=== PATIENT | female | born 1940 | race Caucasian/White ===

== ENCOUNTER → 2022-10-14 | Outpatient (CLI) | payer SELFPAY ==
--- NOTE | 2022-10-14 10:26 | EKG12_ITS ---
Test Reason : PRE-OP Blood Pressure : / mmHG Vent. Rate : 075 BPM Atrial Rate : 075 BPM P-R Int : 174 ms QRS Dur : 080 ms QT Int : 400 ms P-R-T Axes : 050 -16 044 degrees QTc Int : 446 ms Sinus rhythm with occasional Premature ventricular complexes Otherwise normal ECG Confirmed by LORENA SIMPSON, PRIETO ([id number]), editor newspaper TORIBIO LORENZ ([id number]) on 10/15/2022 10:53:07 AM Referred By: Peña Hughes Confirmed By:PRIETO CARRILLO MD
== END | disposition home or self-care (01) ==
PROVIDERS: PCP Family Medicine; Referring Provider Surgery; Visit Provider Surgery
DX: I49.3 Ventricular premature depolarization (principal)
CPT/HCPCS: 93005

== ENCOUNTER 2023-10-06 10:16 | Day surgery (SDC) | payer SELFPAY ==
[2023-10-06] VITALS (11 sets, daily range): BP systolic 144–173; BP diastolic 60–86; PULSE 45–75; RESP 16–18; TEMP 36.1–36.7; O2SAT 87–100; BMI 31.2
[2023-10-06] MEDS: Lactated Ringers 1,000 ML 15 ML IV ×2 (11:10→15:39)
[2023-10-06 11:27] LABS: Hematocrit 39.2 % (37-47); Hemoglobin 13.3 g/dL (12.0-15.0); Mean Corp Hgb Conc 33.9 g/dL (32-36); Mean Corpuscular Hgb 32.8 pg (27.0-32.0); Mean Corpuscular Volume 96.6 fL (81-99); Mean Platelet Vol. 9.7 fl (6.2-12.0); Platelet Count 296 K/mm3 (150-450); RBC Distribution Width CV 13.8 % (11.6-14.6); RBC Distribution Width SD 49.4 fl (35.1-43.9); Red Blood Count 4.06 M/mm3 (4.2-5.4); White Blood Count 9.6 K/mm3 (4.4-11.0)
[2023-10-06 11:50] LABS: Anion Gap 8 (5-15); BUN 19 mg/dL (7-18); BUN/Creat Ratio 26.8 RATIO (10-20); Calcium,Total 8.5 mg/dL (8.5-10.1); Chloride 112 mmol/L (98-107); Creatinine, Serum 0.71 mg/dL (0.55-1.02); EST Glomerular Filtration Rate 84 mL/min (>60); Est Glom Filt Rate - Afr Amer 102 mL/min (>60); Estimated Creatinine Clearance 35.49 ml/min; Glucose 108 mg/dL (74-106); Potassium 4.1 mmol/L (3.5-5.1); Sodium Level 143 mmol/L (136-145)
--- NOTE | 2023-10-06 11:51 | HP.PCM_ITS ---
History and Physical Date of Admission: 10/06/23 Is patient in pain?: No Allergies prochlorperazine [From Compazine] Allergy (Verified 09/06/23 09:14) Swellingprochlorperazine edisylate [From Compazine] Allergy (Verified 09/06/23 09:14) Swellingprochlorperazine maleate [From Compazine] Allergy (Verified 09/06/23 09:14) Swelling Medications amlodipine 5 mg tablet 5 mg PO DAILY 10/14/22 [History Confirmed 09/06/23] multivitamin with minerals 1 cap PO DAILY 09/06/23 [History Confirmed 09/06/23] PFSH Medical History Hypertension Irregular heartbeat Surgical History Hx of cholecystectomy Social History Smoking Status: Never smoker alcohol intake: never substance use type: does not use HPI HPI Surgical H&P: Yes HPI: Patient is an 82 y/o F I am seeing for an update history and physical for an elective ventral incisional hernia repair with mesh. Patient denies any recent hospitalizations or illnesses. She was evaluated by her PCP for high blood pressure. She is currently on amlodipine, which she does not take on a regular daily basis. She had a Holter monitor which demonstrated PVCs. Patient notes she is anxious for this surgery and is having trouble sleeping. She notes she has tried Tylenol PM and Melatonin, which has not helped. Patient denies any pulmonary issues. She denies any complications or side effects from anesthesia. She denies any concerns with the hernia. Patient's previous history per Dr. Hughes: 82-year-old female. I previously saw her in the office on October 14, 2022 in consultation for a ventral incisional hernia superior to the umbilicus. I had offered the patient a direct approach to this hernia hopefully being able to utilize a Ventralex mesh but holding open the opportunity to convert to a laparoscopic approach if indicated. That then would be benefited by a transabdominal plane block. The patient however was significantly hypertensive at that time and had an irre gular heart rate. She was to follow through with maximization of her medical management per primary care. The patient admits that sometimes based upon blood pressures that she takes at home that she does not take her blood pressure medicine. She will occasionally notice irregularity of her heart rate. She presents today however having had what appears to be a Holter monitor which demonstrated PVCs. It was felt that if these were not bothersome to the patient that a cardiology appointment would not be required. TSH level was felt to be normal. As of October 14, [address] [facility] she had a ECG which was felt to be normal except for occasional PVCs. The patient denies chest pain. She denies shortness of breath. My previous notes reflect the following 81-year-old female who is being referred by Dr. Luigi Chaudhari for surgical consultation regarding an umbilical hernia.? Written copy of my surgical consult recommendations will return to him.? It is of note that on September 21, 2022 at [facility] in [facility] she had a CT scan of the abdomen pelvis.? The gallbladder is noted to be surgically absent.? Fatty changes of the liver present.? Colonic diverticulosis with moderate stool retention noted.? A 5.9 cm umbilical hernia with fat present with the orifice being 2.6 cm in diameter.? I have personally reviewed these images.? The hernia actually does not appear to be an umbilical hernia but rather a ventral hernia that is superior to the umbilicus.? There is a significant amount of fibrofatty tissue that appears incarcerated. The patient reminds me that I assisted her in 1995 with a laparoscopic cholecystectomy She states however that only several months ago did she start noticing a bulge at the superior aspect of her umbilicus.? It is progressively enlarged. She also states that she has a blood pressure monitor at home.? She only takes her blood pressure medicine when she thinks she has an elevated blood pressure.? She has not been taking it on a daily basis.? She states that she notices that her machine tells that she has an irregular heart rate.? She does not think that her primary care physician Dr. Luigi Chaudhari is aware of this.? The patient admits that she does not see him very often ROS General General: Yes weight change and fatigue; No appetite, colon cancer, breast cancer or weakness HEENT HEENT: No difficulty swallowing, eye injury, eye surgery, swollen glands or hoarseness Endo Endocrine: No thyroid disease, diabetes mellitus, thyroid cancer, Hair loss, heat intolerance or cold intolerance Skin Skin: No rash or changing moles Breast Breast: No left breast lump, right breast lump, nipple discharge, breast pain, abnormal mammogram, abnormal US or breast enlargement [facility] [place] Musculoskeletal: Yes arthritis; No back problems, rheumatoid arthritis, gout or joint pain Cardio Cardiovascular: Yes high blood pressure; No murmur, pacemaker, heart disease, atrial fibrillation, heart attack, heart stent, palpitations, shortness of breat with exertion or chest pain Psych Psychiatric: Yes anxiety; No depression or hearing voices Resp Respiratory: No shortness of breath, No sleep apnea, No cough, No COPD, No asthma, No emphysema and No wheezing Gastro Gastrointestinal: No abdominal pain, No nausea or vomiting, No diarrhea, Yes constipation, No blood in stool, Yes acid reflux, No hemorrhoids, Yes ulcers, No gallbladder problem and No black,tarry stools Quintin Hematologic: Yes blood disorders, Yes bleeding, Yes anemia and Yes blood clots Neuro Neurologic: No system reviewed and no additional complaints, except as documented, No as per HPI, No abnormal gait, No abnormal hearing, No abnormal movements, No abnormal speech, No behavioral changes, No burning sensations, No confusion, No convulsions, No disequilibrium, No dizziness, No localized weakness, No frequent falls, No headache(s), No lack of coordination, No loss of vision, No memory loss, No numbness, No other visual disturbances, No radicular pain, No restless legs, No sensory deficit, No syncope, No tingling, No tremor(s), No weakness and No other Exam Const General: cooperative, healthy appearing, comfortable and no acute distress [facility] Head: normal to inspection Eyes General: appearance normal, both eyes and all related structures Neck Neck: normal visual inspection Neck mass: No Chest Chest palpation & inspection: normal inspection of the chest Resp Effort & Inspection: normal respiratory effort Auscultation: clear to auscultation bilaterally Cardio Rate: regular rate Rhythm: regular rhythm Other: Currently regular rhythm GI Inspection: normal to inspection Palpation: no hepatosplenomegaly Auscultation: normal bowel sounds Other: Superior edge of the umbilicus there is a 5 cm diameter fibrofatty mass. Partially reducible, slightly tender. Well-healed infraumbilical incision noted. [facility] [place] Cervical Spine: normal cervical lordosis Skin General: no rashes or lesions noted Neuro General: no focal motor deficits and CN's II-XI intact bilaterally Extrem General: normal to inspection Psych Appearance: grossly normal Affect: normal affect Assessment and Plan Assessment and Plan (1) Incisional hernia of anterior abdominal wall without obstruction or gangrene: Status: Acute Plan: Dr. Hughes will plan to perform an open ventral incisional hernia repair with mesh possible conversion to laparoscopic approach. Procedure details, risks and benefits have been explained. Patient has had the opportunity to ask and have questions answered. Patient verbally understands and agrees with the plan. I have recommended the patient take her blood pressure every day and more co nsistent. Patient verbally understands and agrees. I have examined the patient and the H&P has been reviewed. There are no clinical changes since date of exam. Peña Hughes M.D., F.A.C.S.
--- NOTE | 2023-10-06 11:52 | DCINST_ITS ---
Discharge Instructions Procedure General Surgery Diet Discharge Diet: Light diet - advance as tolerated (if you have questions about your diet instructions, please talk to you doctor.) Activity Discharge Activity: May Not Drive (for 3-5 days or while taking narcotic pain medicine.) May shower in (days): 1 Lifting Restrictions: 10 pounds Dressing / Incision Call your doctor if your incision/area has: Continuous Slow Oozing, Sudden Increased Bleeding, Increased Pain/ Swelling, Increased Redness and Foul Smelling Discharge Call your doctor if you observe: Fever of 101 or Higher Suture Line Care: Avoid Pulling/Pushing and Avoid Pinching/Bending Additional Dressing/Incision Instructions:: Change or remove dressing in 4 days. Leave steri-strips in place for 1 week. Follow Up Care Please Follow Up With: Peña Hughes MD When: Call [phone] to make an appointment to be seen in about 10 days. Test Results: Test results from this visit will be discussed in further detail at your follow- up appointment, if applicable. Discharge Plan Admission Attending Provider: Peña Hughes Primary Care Provider: Luigi Chaudhari Discharge Orders/Prescriptions Prescriptions: No Action amlodipine 5 mg tablet 5 mg PO DAILY multivitamin with minerals Capsule 1 cap PO DAILY Referrals / Follow Up: Luigi Chaudhari MD [Primary Care Provider] - Disposition Disposition (needs filled in before D/C Order can be placed): Home, Self Care
[2023-10-06] MEDS: Cefazolin 2 GM in 0.9% Normal Saline (100mL Bag) 100 ML IV (12:25)
--- NOTE | 2023-10-06 12:30 | HERN_PTH ---
PATHOLOGY RESULTS PATIENT: ANTHONY CHAPMAN [place] [facility] U[place][id number] AGE/SX: 82/F ROOM: RE10/06/[address]: Dr. Peña Hughes MD : [id number] BED: DIS: 10/06/2023 SPEC #: [id number] RECD: 10/07/23 07:08 STATUS: ASH CARMEN #: [id number] JANINE: 10/06/23 12:[address]: Peña Hughes DEPT: SURGICAL PATHOLOGY RECD BY: Filomena Urrutia ENTERED: 10/07/23 07:08 SP TYPE: Hernia OTHR DR: Dr. Luigi Chaudhari MD Tissues: HERNIA Omentum, NOS Procedures: Surgery Specimen Level II Surgery Specimen Level IV HEADER OPERATION: Incarcerated ventral/incisional herniorrhaphy with mesh PRE-OP DIAGNOSIS: Incisional hernia of anterior abdominal wall TISSUE SUBMITTED: A - Hernia sac and contents, B - Incarcerated omentum MICROSCOPIC DIAGNOSIS A. Hernia sac and contents: A mesothelial-lined piece of fibroadipose and fibroconnective tissue, consistent with hernia sac with chronic inflammation. B. Incarcerated omentum, excision: A piece of mature adipose tissue, clinically incarcerated omentum. PARKER:ginny 10/08/2023 MICROSCOPIC DESCRIPTION Slides are reviewed. GROSS DESCRIPTION A - Received in fixative is one container labeled with the patient's name and designated hernia sac and contents. The specimen consists of a membranous sac with attached adipose tissue measuring 2.5 cm in length and up to 4.0 cm in diameter. No mass lesion is identified. Detonator Assembler sections are submitted in one cassette. B - Received in fixative is one container labeled with the patient's name and designated incarcerated omentum. The specimen consists of two pieces of adipose tissue consistent with omentum measuring in aggregate 13.0 x 8.0 x 2.0 cm. No mass lesion is identified. Detonator Assembler sections are submitted in one cassette. / PARKER:ginny 10/07/2023 TC: 5 CPT: 31268, 67058
[2023-10-06] MEDS: Bupivacaine Mpf 0.5% 30 ML VIAL (13:18)
--- NOTE | 2023-10-06 13:23 | PCM.OPRPT ---
Report of Operation Date of Procedure: 10/06/23 Pre-Operative Diagnosis: Incarcerated ventral incisional hernia at the umbilicus Post-Operative Diagnosis: Incarcerated ventral incisional hernia 3 cm in diameter at the umbilicus Surgery/Procedure Performed:: Incarcerated ventral incisional herniorrhaphy with [address] mesh Reference [id number], lot number [id number], expiry date 02/28/2025 Description of Surgical Findings:: Timeout informed consent was obtained. 82-year-old female was taken to the operating placed upon the table underwent general endotracheal intubation anesthesia the abdomen was sterilely prepped and draped Ancef 2 g were given intravenously clean procedure. A supraumbilical curvilinear incision was created sharp blunt dissection performed hernia sac identified and was opened there was significant amount of incarcerated omentum. Despite attempts to reduce omentum this was not possible so then I transected a portion of the omentum by placing Luanne clamps amputating the excess indurated omentum and secured the bases with 0 Vicryl ligature. Then created a space in the retrorectus space elevating the peritoneum. I then closed the peritoneal defect with a running 3-0 Vicryl. An [address] mesh was placed in the retrorectus space. It was secured in position with the tails with interrupted 0 Nurolon and then the fascia was approximated transversely with interrupted 0 Nurolon incorporating the anterior portion of the mesh. Good closure and positioning was achieved. The BOBO fascial area and skin was anesthetized with 30 cc of 0.5% Marcaine. Subcutaneous tissues were approximated up to 3-0 Vicryl. Excess skin was trimmed free the skin was then discarded. Skin edges were approximated with interrupted 4 Monocryl subdermal stitches. Steri-Strips Telfa cotton balls OpSite dressings applied. Sponge and instrument and needle counts were reported the surgeon to be correct. Specimen hernia sac and incarcerated omentum. Drains none. Blood loss minimal. The patient was taken to the recovery room in satisfied condition without apparent complication Peña Hughes M.D., F.A.C.S. Surgeon: Peña Hughes Type of Anesthesia: General and Local Anesthesiologist: Genet Paula
[2023-10-06 15:40] LABS: Troponin-I HS 7 pg/mL (3.0-54.0)
== END 2023-10-06 18:33 | disposition home or self-care (01) ==
LOC: SDC 10:18 → AC 10:21
PROVIDERS: Anesthesiology; PCP Family Medicine; Referring Provider Surgery; Visit Provider Surgery
PROC: 0WQF4ZZ Repair Abdominal Wall, Percutaneous Endoscopic Approach (ICD-10-PCS; CPT 49594; principal; 2023-10-06 12:15)
DX: K43.0 Incisional hernia with obstruction, without gangrene (principal); K76.0 Fatty (change of) liver, not elsewhere classified; I10 Essential (primary) hypertension; Z90.49 Acquired absence of other specified parts of digestive tract; K57.30 Diverticulosis of large intestine without perforation or abscess without bleeding; K42.9 Umbilical hernia without obstruction or gangrene
CPT/HCPCS: 49594; 00832; 80048; 84484; 85027; 88302; 88305; 93005; J7120; C1781; J2405; J3490

== ENCOUNTER 2024-01-07 12:50 | Emergency (ER) | payer OTHER, SELFPAY ==
[2024-01-07 12:50] VITALS: BP 174/104; PULSE 92; RESP 18; O2SAT 97
[2024-01-07 12:52] VITALS: BP 208/61; PULSE 58; RESP 18; TEMP 36.3; O2SAT 97
--- NOTE | 2024-01-07 13:07 | EX.ED.DYSGE1 ---
HPI <KOJO Fontaine - Last Filed: 01/07/24 14:48> History of Present Illness Chief Complaint: Palpitations Narrative Narrative: 83-year-old female with past medical history of hypertension was sent in by her primary care office for palpitations. Patient has had palpitations with sensation of heart pounding at night starting about a year ago. She reports doing a Holter monitor a year ago which showed PVCs. The palpitations have become more frequent at night. She has no associated chest pain, shortness of breath, nausea or vomiting, or abdominal pain. She does not have symptoms during the day. The only medication she takes is amlodipine 5 mg in the morning. She does not smoke or drink alcohol. She states her heart rate with her home BP cuff shows 40-80 bpm. PFSH <KOJO Fontaine - Last Filed: 01/07/24 14:48> [facility] Medical History Anxiety Arthritis High cholesterol History of diverticulitis Hypertension Irregular heartbeat Non-smoker Post-menopausal Rash Wears glasses Home Medications amlodipine 5 mg tablet 5 mg PO DAILY 10/14/22 [History Last Taken 10/06/23] multivitamin with minerals 1 cap PO DAILY 09/06/23 [History Last Taken Unknown] nystatin 100,000 unit/gram topical powder 1 applic topical BID #15 grams 10/06/23 [Rx Last Taken Unknown] amoxicillin 875 mg-potassium clavulanate 125 mg tablet 1 tab PO Q12H #14 tabs 10/19/23 [Rx Last Taken Unknown] dextromethorphan-guaifenesin 10 mg-100 mg/5 mL oral liquid 10 ml PO Q4H PRN cough #500 mL 10/19/23 [Rx Last Taken Unknown] methylprednisolone 4 mg tablets in a dose pack See Rx Instructions PO PER PKG DIR #21 tabs 10/19/23 [Rx Last Taken Unknown] metoprolol tartrate 25 mg tablet 25 mg PO BID 30 days #60 tabs 01/07/24 [Rx Last Taken Unknown] Allergy/AdvReac Type Severity Reaction Status Date / Time prochlorperazine Allergy Swelling Verified 01/07/24 12:51 [From Compazine] prochlorperazine edisylate Allergy Swelling Verified 01/07/24 12:51 [From Compazine] prochlorperazine maleate Allergy Swelling Verified 01/07/24 12:51 [From Compazine] Surgical History History of tonsillectomy and adenoidectomy (~195) History of umbilical hernia repair Hx of cholecystectomy (~1992) Social History Smoking Status: Never smoker alcohol intake: never substance use type: does not use ROS <KOJO Fontaine - Last Filed: 01/07/24 14:48> ROS ED ROS Narrative Constitutional: Negative for fever, chills, malaise. CVS: Positive for palpitations. Negative for chest pain, syncope. Respiratory: Negative for shortness of breath, cough, orthopnea. GI: Negative for abdominal pain, nausea, vomiting. EXAM <KOJO Fontaine - Last Filed: 01/07/24 14:48> Physical Exam Narrative Exam Narrative: CONST: Patient sitting in no acute distress. EYES: Normal inspection. NECK: Normal inspection. RESP: No respiratory distress, CTAB. CVS: Regular rate and rhythm, no murmur, no gallop. SKIN: Color normal, no rash, warm, dry, intact. EXTREMITIES: Normal appearance, no pedal edema. NEURO: Oriented x4. PSYCH: Normal affect. Const Vital Signs: 01/07/24 12:52 01/07/24 12:50 01/07/24 13:11 Temperature 97.3 F L Temperature Source Temporal Pulse Rate 58 L 92 Respiratory Rate 18 18 Respiratory Effort Normal Blood Pressure 208/61 H 174/104 H Blood Pressure Mean 110 127 Pulse Ox 97 97 Oxygen Delivery Method Room Air Room Air 01/07/24 13:26 01/07/24 14:53 Temperature 97 F L Temperature Source Pulse Rate 81 73 Respiratory Rate 18 15 Respiratory Effort Blood Pressure 197/72 H 140/87 H Blood Pressure Mean 113 104 Pulse Ox 96 95 Oxygen Delivery Method Room Air <Dr. Ganga Todd DO - Last Filed: 01/07/24 16:42> Physical Exam Const Vital Signs: 01/07/24 12:52 01/07/24 12:50 01/07/24 13:11 Temperature 97.3 F L Temperature Source Temporal Pulse Rate 58 L 92 Respiratory Rate 18 18 Respiratory Effort Normal Blood Pressure 208/61 H 174/104 H Blood Pressure Mean 110 127 Pulse Ox 97 97 Oxygen Delivery Method Room Air Room Air 01/07/24 13:26 01/07/24 14:53 Temperature 97 F L Temperature Source Pulse Rate 81 73 Respiratory Rate 18 15 Respiratory Effort Blood Pressure 197/72 H 140/87 H Blood Pressure Mean 113 104 Pulse Ox 96 95 Oxygen Delivery Method Room Air MDM <KOJO Fontaine - Last Filed: 01/07/24 14:48> [facility] Narrative Medical decision making narrative: History gathered from: Patient and spouse Differential: PVCs, SVT, A-fib, electrolyte abnormality, ACS Patient has had palpitations at night over the last year increasing in frequency. She has no other symptoms. She is awake and alert, BP 174/104, heart rate sinus rhythm in the 90s and otherwise stable vital signs. I do note frequent PVCs on the monitor. The rest of her exam is benign. CBC and BMP unremarkable. Troponin is 7. CXR shows no acute process. I suspect she is having symptomatic PVCs at night. She does report some low heart rates at home however here is pretty consistently 80 to 90 bpm. I discussed the case with Dr. Pederson and cardiology who recommended adding metoprolol to tartrate 25 mg twice daily for better blood pressure and palpitation control. Patient was advised to follow-up with the cardiology office and was discharged in stable condition. Lab Data Attestation: I reviewed the patient's lab results. Labs: Laboratory Results - last 24 hr 01/07/24 13:13 WBC 9.9 RBC 4.53 Hgb 14.1 Hct 42.6 MCV 94.0 MCH 31.1 MCHC 33.1 RDW Std Deviation 48.3 H RDW Coeff of [place] 14.0 Plt Count 300 MPV 10.2 Immature Gran % (Auto) 0.200 Neut % (Auto) 52.8 Lymph % (Auto) 32.5 [place] % (Auto) 10.0 Eos % (Auto) 3.4 Baso % (Auto) 1.1 H Absolute Neuts (auto) 5.2 Absolute Lymphs (auto) 3.21 Nucleated RBC % 0 Sodium 140 Potassium 4.2 Chloride 108 H Carbon Dioxide 27.0 Anion Gap 5 BUN 21 H Creatinine 1.00 Estim Creat Clear Calc 44.73 Est GFR (MDRD) Af Amer 68 Est GFR (MDRD) Non-Af 57 L BUN/Creatinine Ratio 21.0 H Glucose 214 H Calcium 8.9 Troponin I High Sens 7 Radiography Diagnostic Testing: Clinical Impression(s) from Imaging Studies Chest X-Ray 01/07/24 13:19 IMPRESSION: No acute abnormality seen. Electronically Signed: Sampson Askew MD at 13:33 EDT , ED attending interpretation of 1-view chest x-ray shows normal heart size, no acute infiltrate, edema, or effusion. EKG Initial EKG: Attestation: I personally reviewed and interpreted this EKG as follows: Comments: Normal sinus rhythm at 90 bpm with frequent PVCs <Dr. Ganga Todd, DO - Last Filed: 01/07/24 16:42> [facility] Narrative Medical decision making narrative: History gathered from: Patient and spouse Differential: PVCs, SVT, A-fib, electrolyte abnormality, ACS Patient has had palpitations at night over the last year increasing in frequency. She has no other symptoms. She is awake and alert, BP 174/104, heart rate sinus rhythm in the 90s and otherwise stable vital signs. I do note frequent PVCs on the monitor. The rest of her exam is benign. CBC and BMP unremarkable. Troponin is 7. CXR shows no acute process. I suspect she is having symptomatic PVCs at night. She does report some low heart rates at home however here is pretty consistently 80 to 90 bpm. I discussed the case with Dr. Pederson and cardiology who recommended adding metoprolol to tartrate 25 mg twice daily for better blood pressure and palpitation control. Patient was advised to follow-up with the cardiology office and was discharged in stable condition. ED attending note: I evaluated the patient in conjunction with the DORETHA. I agree with his/her statements and above findings. I have personally performed a face to face assessment of the patient and have reviewed the D[facility]ET[facility] Note. I performed a substantive portion of the visit including all aspects of the following. I personally saw the patient performed chart review, physical exam, reviewed labs, imaging (if obtained), and formulated a treatment and management plan. This note was generated with [employer] dictation software. It may contain incorrect words, spelling, and punctuation that were not noted in review of the chart prior to signing. Lab Data Labs: Laboratory Results - last 24 hr 01/07/24 13:13 WBC 9.9 RBC 4.53 Hgb 14.1 Hct 42.6 MCV 94.0 MCH 31.1 MCHC 33.1 RDW Std Deviation 48.3 H RDW Coeff of [place] 14.0 Plt Count 300 MPV 10.2 Immature Gran % (Auto) 0.200 Neut % (Auto) 52.8 Lymph % (Auto) 32.5 [place] % (Auto) 10.0 Eos % (Auto) 3.4 Baso % (Auto) 1.1 H Absolute Neuts (auto) 5.2 Absolute Lymphs (auto) 3.21 Nucleated RBC % 0 Sodium 140 Potassium 4.2 Chloride 108 H Carbon Dioxide 27.0 Anion Gap 5 BUN 21 H Creatinine 1.00 Estim Creat Clear Calc 44.73 Est GFR (MDRD) Af Amer 68 Est GFR (MDRD) Non-Af 57 L BUN/Creatinine Ratio 21.0 H Glucose 214 H Calcium 8.9 Troponin I High Sens 7 Radiography Diagnostic Testing: Clinical Impression(s) from Imaging Studies Chest X-Ray 01/07/24 13:19 IMPRESSION: No acute abnormality seen. Electronically Signed: Sampson Askew MD at 13:33 EDT Reading Location ID and State: [address] [place] [address] , Service support , Discharge Plan Triage Chief Complaint: Palpitations ED Midlevel Provider: Judy Oakley ED Provider: Ganga Todd Dx/Rx/DC Orders Clinical Impression: Palpitations, Frequent PVCs, Hypertension Instructions: ED Palpitations Prescriptions: New metoprolol tartrate 25 mg tablet 25 mg PO BID 30 Days Qty: 60 0RF No Action amlodipine 5 mg tablet 5 mg PO DAILY multivitamin with minerals Capsule 1 cap PO DAILY dextromethorphan-guaifenesin 10-100 mg/5 mL liquid 10 ml PO Q4H PRN (Reason: cough) Qty: 500 0RF amoxicillin-pot clavulanate 875-125 mg tablet 1 tab PO Q12H Qty: 14 0RF methylprednisolone 4 mg tablets,dose pack See Rx Instructions PO PER PKG DIR Qty: 21 0RF Rx Instructions: PO PER PKG DIR nystatin 100,000 unit/gram powder 1 applic topical BID Qty: 15 0RF Rx Instructions: Apply to affected area twice daily for 1 week Primary Care Provider: Luigi Chaudhari Referrals: Harini Pederson MD [Med Staff - Active Staff] - uLigi Chaudhari MD [Primary Care Provider] - Activity Restrictions/Additional Instructions: I prescribed a new medication called metoprolol to treat your blood pressure and palpitations. Please follow-up with the cardiology office. Disposition Disposition: Home, Self Care Discharge Date/Time: 01/07/24 15:04
[2024-01-07 13:14] VITALS: BMI 29.7
--- NOTE | 2024-01-07 13:19 | RAD_ITS ---
STUDY: X-RAY CHEST REASON FOR EXAM: Female, 83 years old. Palpitations TECHNIQUE: Single AP portable view of the chest. COMPARISON: Comparison is made with prior study dated October 19, 2023. FINDINGS: EKG electrodes are seen. The lungs are clear and expanded. There is no demonstrated pleural abnormality. There is mild cardiac enlargement. Normal mediastinum and justus. Normal visualized pulmonary arteries. There is atherosclerotic calcification of the aortic arch with tortuosity. There are diffuse degenerative changes of the visualized thoracic spine. Normal visualized ribs, clavicles, and shoulders. There is no demonstrated abnormality of the visualized soft tissue structures of the upper abdomen. RAD/Chest 1 View (Portable) IMPRESSION: No acute abnormality seen. Electronically Signed: Sampson Askew MD at 13:33 EDT ,
[2024-01-07 13:26] VITALS: BP 197/72; PULSE 81; RESP 18; O2SAT 96
[2024-01-07 13:36] LABS: Absolute Lymphocyte Count 3.21 X10^3/uL (0.83-4.51); Absolute Neutrophil Count 5.2 X10^3/uL (2.0-7.7); Basophil# 0.11 X10^3/uL; Basophil% 1.1 % (0-1); Eosinophil# 0.34 X10^3/uL; Eosinophils% 3.4 % (0-5); Hematocrit 42.6 % (37-47); Hemoglobin 14.1 g/dL (12.0-15.0); Lymphocyte # 3.21 X10^3/ul (0.83-4.51); Lymphocyte % 32.5 % (19-41); Mean Corp Hgb Conc 33.1 g/dL (32-36); Mean Corpuscular Hgb 31.1 pg (27.0-32.0); Mean Platelet Vol. 10.2 fl (6.2-12.0); Monocyte# 0.99 X10^3/uL; NRBC Flagged by Analyzer 0 % (0-5); Neutrophil # 5.22 X10^3/uL (2.7-7.7); Neutrophil % 52.8 % (47-70); Platelet Count 300 K/mm3 (150-450); RBC Distribution Width SD 48.3 fl (35.1-43.9); Red Blood Count 4.53 M/mm3 (4.2-5.4); White Blood Count 9.9 K/mm3 (4.4-11.0)
[2024-01-07 13:53] LABS: Anion Gap 5 (5-15); BUN 21 mg/dL (7-18); Calcium,Total 8.9 mg/dL (8.5-10.1); Chloride 108 mmol/L (98-107); EST Glomerular Filtration Rate 57 mL/min (>60); Est Glom Filt Rate - Afr Amer 68 mL/min (>60); Estimated Creatinine Clearance 44.73 ml/min; Glucose 214 mg/dL (74-106); Potassium 4.2 mmol/L (3.5-5.1); Sodium Level 140 mmol/L (136-145); Troponin-I HS 7 pg/mL (3.0-54.0)
[2024-01-07 14:53] VITALS: BP 140/87; PULSE 73; RESP 15; TEMP 36.1; O2SAT 95
[2024-01-07] MEDS: Metoprolol Tartrate 25 MG Tablet PO (14:54)
== END 2024-01-07 15:04 | disposition home or self-care (01) ==
PROVIDERS: Physician Assistant; Emergency Provider Emergency Medicine; PCP Family Medicine; Visit Provider Emergency Medicine
DX: R00.2 Palpitations (principal); I10 Essential (primary) hypertension; I49.3 Ventricular premature depolarization; Z79.899 Other long term (current) drug therapy; E78.00 Pure hypercholesterolemia, unspecified; Z90.49 Acquired absence of other specified parts of digestive tract
CPT/HCPCS: 71045; 80048; 84484; 85025; 93005; 99285

== ENCOUNTER → 2024-04-10 | Outpatient (CLI) | payer SELFPAY ==
--- NOTE | 2024-04-10 08:24 | ECHOD_ITS ---
Reason For Study: Arrhythmia Procedure This was a 2D Doppler, Color Flow transthoracic echocardiogram. Exam performed in department. Left Ventricle Normal LV size. Left ventricular systolic function is normal. Stage 1 diastolic dysfunction. The left ventricular ejection fraction is 60 %. No regional wall motion abnormalities noted. Right Ventricle Normal RV size. Normal systolic function. Atria Normal left atrium. Normal right atrium. Mitral Valve Normal mitral valve. Tricuspid Valve Normal tricuspid valve. Aortic Valve Trisinus/trileaflet aortic valve. Mild focal aortic valve calcification. Mild (1+) aortic valve insufficiency. Pulmonic Valve Normal pulmonic valve. Great Vessels Normal aortic root. The pulmonary artery is normal size. Normal inferior vena cava. Pericardium/Pleural No pericardial effusion. MMode/2D Measurements & Calculations LVIDd: 4.5 cm IVSd: 0.99 cm LVOT diam: 1.9 cm LVIDs: 2.5 cm LVPWd: 1.0 cm LVOT area: 2.8 cm2 RVDd: 3.2 cm FS: 43.4 % Ao root diam: 3.2 cm LAV(MOD-bp): 58.0 ml LVAd ap4: 26.9 cm2 LAV(MOD-bp) Indexed: 31.9 ml/m2 LVLd ap4: 7.9 cm LAV(MOD-sp2): 64.6 ml EDV(MOD-sp4): 75.9 ml LAV(MOD-sp4): 48.1 ml EDV(sp4-el): 78.1 ml LVAs ap4: 15.9 cm2 LVLs ap4: 6.7 cm ESV(MOD-sp4): 32.1 ml ESV(sp4-el): 31.8 ml EF(MOD-sp4): 57.8 % EF(sp4-el): 59.2 % LVAd ap2: 25.6 cm2 SV(MOD-sp4): 43.8 ml SV(MOD-sp2): 42.7 ml LVLd ap2: 7.7 cm EDV(MOD-sp2): 72.7 ml EDV(sp2-el): 72.2 ml LVAs ap2: 15.7 cm2 LVLs ap2: 7.3 cm ESV(MOD-sp2): 30.0 ml ESV(sp2-el): 28.7 ml EF(MOD-sp2): 58.7 % SV(sp4-el): 46.3 ml LA dimension(2D): 3.4 cm LA A4 area: 18.5 cm2 RA A4 area: 14.1 cm2 TAPSE: 2.3 cm Time Measurements MV dec time: 0.17 sec Doppler Measurements & Calculations MV E max azam: 70.7 cm/sec Lat Peak E' Azam: 8.9 cm/sec Med Peak E' Azam: 8.4 cm/sec MV A max azam: 95.2 cm/sec E/E' lat: 7.9 E/E' med: 8.4 MV E/A: 0.74 Ao V2 max: 170.1 cm/sec LV V1 max: 97.4 cm/sec MV dec slope: 420.9 cm/sec2 Ao max P.6 mmHg LV V1 max P.8 mmHg Ao V2 mean: 113.4 cm/sec LV V1 mean P.7 mmHg Ao mean P.8 mmHg LV V1 mean: 80.6 cm/sec Ao V2 VTI: 42.7 cm LV V1 VTI: 27.3 cm AV (velocity ratio): 0.64 LINK(I,D): 1.8 cm2 LINK(V,D): 1.6 cm2 SV(LVOT): 77.1 ml PA V2 max: 74.4 cm/sec PA max PG (full): 1.1 mmHg ECHO/Echo Complete Interpretation Summary Normal LV size. Left ventricular systolic function is normal. Stage 1 diastolic dysfunction. The left ventricular ejection fraction is 60 %. Ordering Physician: Ranjith Flores Referring Physician: Luigi Chaudhari Performed By: Anika Rodrigues RDCS
== END | disposition home or self-care (01) ==
PROVIDERS: PCP Family Medicine; Referring Provider Internal Medicine Cardiovascular Disease; Visit Provider Internal Medicine Cardiovascular Disease
DX: I49.9 Cardiac arrhythmia, unspecified (principal)
CPT/HCPCS: 93225; 93226; 93306

== ENCOUNTER → 2024-12-27 | Outpatient (CLI) | payer OTHER, SELFPAY | END | disposition home or self-care (01) | PROVIDERS: PCP Family Medicine; Referring Provider Nurse Practitioner Family; Visit Provider Nurse Practitioner Family | DX: I49.3 Ventricular premature depolarization (principal); I10 Essential (primary) hypertension | CPT/HCPCS: 93225; 93226 ==